=== PATIENT | female | born 1975 | race Caucasian/White ===

== ENCOUNTER 2023-07-16 11:49 | Emergency (ER) | payer SELFPAY ==
[2023-07-16 11:56] VITALS: BP 124/82; PULSE 75; RESP 16; TEMP 37.1; O2SAT 100; BMI 24.0
--- NOTE | 2023-07-16 12:44 | DI.RAD.S_ITS ---
PROCEDURE: XR HAND RT MIN 3V INDICATIONS: thumb pain TECHNIQUE: 3 views of the hand(s) acquired. COMPARISON: None. FINDINGS: Bones: No displaced fracture. No dislocation. Soft tissues: No suspicious calcifications. IMPRESSION: No acute radiographic abnormality. If there is high concern for further derangement, consider MRI evaluation. Dictated by: Hang May M.D. on 07/16/2023 at 13:34 Approved by: Hang May M.D. on 07/16/2023 at 13:35
--- NOTE | 2023-07-16 12:45 | ED.EXTPRO ---
HPI - Extremity Problem <Lynda Omer PA-C - Last Filed: 07/16/23 18:43> General Chief complaint: Extremity Problem,Nontraumatic Stated complaint: thumb is swollen/inflamed/painful Time Seen by Provider: 07/16/23 12:02 Source: patient Mode of arrival: Ambulatory History of Present Illness HPI Narrative: 48-year-old female with past medical history diabetes, gastroparesis, gastritis, fibromyalgia presents to the ED with 2 weeks of right thumb pain. Patient denies any one specific trauma, however has been helping her mother clean up her house. Patient states that she is here helping her mother clean up her house after her hoarder father went to skilled nursing. Patient states she has noticed that the left thumb appears to dislocate every once in awhile and she has to painfully put it back in place. Patient denies numbness, tingling, weakness. Patient denies fever, chills, nausea, vomiting. Related Data Home Medications Medication Instructions Recorded Confirmed metformin 500 mg tablet,extended 500 mg PO BID ##0 12/18/11 release 24 hr (Glucophage XR) albuterol sulfate 90 mcg/actuation 1 puff INH ##0 01/24/12 aerosol inhaler (Proventil HFA) gabapentin 600 mg tablet 600 mg PO QID ##0 01/24/12 (Neurontin) sumatriptan succinate 25 mg tablet 100 mg PO PRN ##0 01/24/12 (Imitrex) Previous Rx's Medication Instructions Recorded metoclopramide HCl 10 mg tablet 10 mg PO TIDAC #10 tabs 06/05/17 Allergies Allergy/AdvReac Type Severity Reaction Status Date / Time erythromycin base Allergy Intermediate Verified 07/16/23 12:57 [From ERYTHROCIN] azithromycin Allergy Unknown Verified 07/16/23 12:58 morphine [MORPHINE] Allergy Unknown Verified 07/16/23 12:57 Review of Systems <Lynda Omer PA-C - Last Filed: 07/16/23 18:43> Constitutional Constitutional: Denies chills, Denies fatigue, Denies fever(s), Denies frequent falls, Denies lethargy and Denies weakness Eyes Eyes: Denies change in vision, Denies eye discharge, Denies irritation and Denies loss of vision ENT Ears, Nose, Mouth, and Throat: Denies change in voice, Denies dizziness, Denies neck pain, Denies sore throat and Denies throat swelling Cardiovascular Cardiovascular: Denies chest pain, Denies irregular heart rhythm, Denies lightheadedness, Denies palpitations, Denies dyspnea, Denies dyspnea on exertion and Denies orthopnea Respiratory Respiratory: Denies cough, Denies dyspnea, Denies dyspnea on exertion and Denies wheezing Gastrointestinal Gastrointestinal: Denies abdominal pain, Denies change in bowel habits, Denies diarrhea, Denies nausea and Denies vomiting Musculoskeletal Musculoskeletal: Denies neck pain and Denies numbness Comments: Right thumb pain, swelling Integumentary/Breasts Skin/Breast: Denies pruritus, Denies erythema, Denies rash and Denies wounds Neurologic Neurologic: Denies behavioral changes, Denies confusion, Denies dizziness, Denies frequent falls, Denies loss of vision, Denies numbness and Denies weakness Psychiatric Psychiatric: Denies anxiety, Denies behavioral changes, Denies confusion, Denies depression, Denies homicidal ideation and Denies suicidal ideation Endocrine Endocrine: Denies fatigue, Denies flushing and Denies palpitations Hematologic/Lymphatic Hematologic/Lymphatic: Denies easy bruising Allergic/Immunologic Allergic/Immunologic: Denies urticaria, Denies throat swelling and Denies wheezing Patient History <Lynda Omer PA-C - Last Filed: 07/16/23 18:43> Social History Smoking Status: Current every day smoker Smoking Status: Current every day smoker tobacco type: cigarettes and vaping Substance Use Type: marijuana Exam <Lynda Omer PA-C - Last Filed: 07/16/23 18:43> Narrative Exam Narrative: Const General:?cooperative, healthy appearing and comfortable [facility] Head:?normal to inspection Ears:?hearing grossly normal bilaterally Nose:?external nose normal Face and sinus:?normal facial exam and sinuses nontender Mouth:?oral mucosae normal Throat:?posterior oropharynx normal Eyes General:?appearance normal, both eyes and all related structures Neck Neck:?normal visual inspection and no lymphadenopathy noted Resp Effort & Inspection:?normal respiratory effort Auscultation:?clear to auscultation bilaterally Cardio Rate:?regular rate Rhythm:?regular rhythm Musculoskeletal Right thumb appears to be swollen, tender to palpation with mild erythema. There is full range of motion, however movement is limited with pain. Strength and sensation is intact. Patient is neurovascularly intact. Neuro General:?patient alert, patient awake and patient oriented x3 Initial Vital Signs Initial Vital Signs: Vital Signs Temperature 98.7 F 07/16/23 11:56 Pulse Rate 75 07/16/23 11:56 Respiratory Rate 16 07/16/23 11:56 Blood Pressure 124/82 07/16/23 11:56 Pulse Oximetry 100 07/16/23 11:56 Oxygen Delivery Method Room Air 07/16/23 11:56 <Rodolfo Pacheco MD - Last Filed: 07/17/23 07:14> Initial Vital Signs Initial Vital Signs: Vital Signs Temperature 98.7 F 07/16/23 11:56 Pulse Rate 75 07/16/23 11:56 Respiratory Rate 16 07/16/23 11:56 Blood Pressure 124/82 07/16/23 11:56 Pulse Oximetry 100 07/16/23 11:56 Oxygen Delivery Method Room Air 07/16/23 11:56 Course <Lynda Omer PA-C - Last Filed: 07/16/23 18:43> Orders Ordered: Discontinued Medications Ketorolac Tromethamine (Ketorolac 30 Mg/Ml Vial) 30 mg IM NOW ONE Stop: 07/16/23 12:46 Last Admin: 07/16/23 12:56 Dose: 30 mg Documented By: AMV Vital Signs Vital signs: Vital Signs - 8 hr 07/16/23 11:56 07/16/23 14:05 Temperature 98.7 F Pulse Rate 75 87 Respiratory Rate 16 18 Blood Pressure 124/82 150/70 H Pulse Oximetry 100 100 Oxygen Delivery Method Room Air Nasal Cannula <Rodolfo Pacheco MD - Last Filed: 07/17/23 07:14> Orders Ordered: Discontinued Medications Ketorolac Tromethamine (Ketorolac 30 Mg/Ml Vial) 30 mg IM NOW ONE Stop: 07/16/23 12:46 Last Admin: 07/16/23 12:56 Dose: 30 mg Documented By: AMV Vital Signs Vital signs: Vital Signs - 8 hr 07/16/23 11:56 07/16/23 14:05 Temperature 98.7 F Pulse Rate 75 87 Respiratory Rate 16 18 Blood Pressure 124/82 150/70 H Pulse Oximetry 100 100 Oxygen Delivery Method Room Air Nasal Cannula MDM - Extremity (Nontraumatic) <Lynda Omer PA-C - Last Filed: 07/16/23 18:43> MDM Narrative Medical decision making narrative: 48-year-old female with past medical history diabetes, gastroparesis, gastritis, fibromyalgia presents to the ED with 2 weeks of right thumb pain. Concern for fracture/dislocation versus musculoskeletal sprain/strain versus other. Will obtain x-rays, give Toradol for pain. Will reassess. X-ray without acute findings. Discussed findings with patient. Patient fitted with thumb spica splint to prevent any intermittent dislocations and promote healing. Recommend follow-up with ortho. Recommend Tylenol, ibuprofen for pain. ED return precautions discussed with patient. Patient verbalized understanding. Medical records reviewed: Yes Discharge Plan Departure Patient Disposition: Home Clinical Impression: Pain of right thumb Instructions: DI for Hand Pain Activity Restrictions/Additional Instructions: You were evaluated in the ED today for right thumb pain. Your x-ray did not show any fractures or dislocations. It is likely that you have a sprain of the right thumb that is causing intermittent dislocation. Please follow-up with [facility] at [phone] as soon as possible. You are being fitted with a thumb spica splint for support. You may take Tylenol for pain. Return to the ED if you experience any numbness, tingling, weakness, worsening symptoms Prescriptions: No Action metformin [Glucophage XR] 500 MG tablet extended release 24 hr 500 mg PO BID Qty: 0 gabapentin [Neurontin] 600 MG tablet 600 mg PO QID Qty: 0 albuterol sulfate [Proventil HFA] 90 MCG/PUFF HFA aerosol inhaler 1 puff INH Qty: 0 sumatriptan succinate [Imitrex] 25 MG tablet 100 mg PO PRN Qty: 0 metoclopramide HCl 10 MG tablet 10 mg PO TIDAC Qty: 10 0RF Referrals: Miscellaneous,[facility] [Primary Care Provider] - Stand Alone Forms: Patient Portal/API ED Sign-out <Rodolfo Pacheco MD - Last Filed: 07/17/23 07:14> Cosign ED Attending Cosignature Attestation: I was immediately available in the department for consultation. ?This documentation has been reviewed and I agree with assessment and plan. Supervised by Rodolfo Pacheco MD
[2023-07-16] MEDS: KETOROLAC 30 MG/ML VIAL IM (12:56)
[2023-07-16 14:05] VITALS: BP 150/70; PULSE 87; RESP 18; O2SAT 100
== END 2023-07-16 14:06 | disposition home or self-care (01) ==
PROVIDERS: Emergency Provider Student in an Organized Health Care Education/Training Program; Family Provider Family Medicine
DX: M79.644 Pain in right finger(s) (principal)
CPT/HCPCS: 73130; 96372; 99283; J1885